=== PATIENT | female | born 1940 | race Caucasian/White ===

== ENCOUNTER 2019-05-29 10:10 | Inpatient (IN) | payer MEDICARE ==
[~2019-05-29] VITALS: Ht 165.1 cm; Wt 111.8 kg
[~2019-05-29 10:10] MED LIST: ASPI-496 PO; CHOL2000 PO; GLIP5TAB10 PO; INSU100I13 SC; LISI-167 PO; METF10002 PO; MULT-717 PO; PRAV80TA2 PO
[2019-05-29] MEDS ORDERED: SODIUM CHLORIDE FLUSH 10ML SYR IVF ONE (10:30)
[2019-05-29] MEDS ORDERED: PROMETHAZINE 25 MG/ML, 1ML ONE (10:37)
[2019-05-29] MEDS ORDERED: PLEASE ENTER HEIGHT AND WEIGHT MC SCH (11:00)
--- NOTE | 2019-05-29 11:08 | NUR ---
pt had one more episode of nausea and vomiting with diarrhea. pt cleaned at this time, sheets changed.
[2019-05-29 11:10] LABS: BASOPHILS # (AUTO) 0.01 x10^3/uL (0-0.1); BASOPHILS % (AUTO) 0 % (0-1); EOSINOPHILS # (AUTO) 0.15 x10^3/uL (0-0.4); EOSINOPHILS % (AUTO) 1 % (1-7); LYMPHOCYTES # (AUTO) 1.59 x10^3/uL (1-3.4); LYMPHOCYTES % (AUTO) 15 % (22-44); MD NO; MEAN CORPUSCULAR HEMOGLOBIN 30.9 pg (27.0-34.8); MEAN CORPUSCULAR HGB CONC 32.5 g/dL (32.4-35.8); MEAN CORPUSCULAR VOLUME 95.3 fL (80-100); MEAN PLATELET VOLUME 9.5 fL (7.4-10.4); MONOCYTES # (AUTO) 0.15 x10^3/uL (0.2-0.8); MONOCYTES % (AUTO) 1 % (2-9); NEUTROPHILS # (AUTO) 8.76 x10^3/uL (1.8-6.8); NEUTROPHILS % (AUTO) 82 % (42-75); PLATELET COUNT 235 x10^3/uL (130-400); RED BLOOD COUNT 5.34 x10^6/uL (3.82-5.3); RED CELL DISTRIBUTION WIDTH 14.1 % (9.6-15.2)
[2019-05-29 11:28] LABS: ANION GAP 12 mmol/L (5-15); CALCIUM 8.3 mg/dL (8.5-10.1); CHLORIDE 111 mmol/L (98-107); CREATININE 0.96 mg/dL (0.55-1.02)
[2019-05-29] MEDS ORDERED: PROMETHAZINE 25 MG/ML, 1ML IM ONE (11:30)
[2019-05-29 11:36] LABS: ALANINE AMINOTRANSFERASE 15 U/L (12-78); ALKALINE PHOSPHATASE 60 U/L (45-117); BILIRUBIN,TOTAL 0.4 mg/dL (0.2-1.0); FREE T4 (FREE THYROXINE) 0.89 ng/dL (0.76-1.46); TOTAL PROTEIN 6.1 g/dL (6.4-8.2)
[2019-05-29] MEDS ORDERED: SODIUM CHLORIDE 0.9% 1,000ML IVBOLUS ONE (13:00)
[2019-05-29 13:24] LABS: TROPONIN I < 0.015 ng/mL (0.000-0.045)
[2019-05-29 14:00] VITALS: BP 114/68
[2019-05-29] MEDS ORDERED: ACETAMINOPHEN 325 MG TABLET PO PRN (14:00)
[2019-05-29] MEDS ORDERED: ENOXAPARIN 40 MG/0.4 ML SQ SCH (14:00)
[2019-05-29] MEDS ORDERED: ONDANSETRON 2MG/ML, 2ML IVPush PRN (14:00)
[2019-05-29] MEDS ORDERED: hydrALAzine 20 MG/ML, 1ML IVPush PRN (14:00)
[2019-05-29] MEDS ORDERED: PROMETHAZINE 25 MG/ML, 1ML IM PRN (14:00)
[2019-05-29] MEDS ORDERED: LABETALOL 5MG/ML, 20ML IVPush PRN (14:00)
[2019-05-29 14:53] LABS: MICROSCOPIC INDICATED
[2019-05-29 14:56] LABS: CULTURE INDICATED? YES
[2019-05-29 15:11] LABS: TROPONIN I < 0.015 ng/mL (0.000-0.045)
[2019-05-29] MEDS: SODIUM CHLORIDE 0.9% 1,000 ML IV SCH ×3 (16:03→21:50)
[2019-05-29] MEDS: INSULIN LISPRO 100 UNITS/ML, PEN SQ-INSULIN SCH ×2 (16:49→21:48)
[2019-05-29 19:19] VITALS: BP 94/59
[2019-05-29 20:02] LABS: TROPONIN I < 0.015 ng/mL (0.000-0.045)
[2019-05-29] MEDS ORDERED: INSULIN GLARGINE 100 UNITS/ML, PEN SQ-INSULIN SCH ×2 (21:00)
[2019-05-29] MEDS ORDERED: PRAVASTATIN 40 MG TABLET PO SCH (21:00)
[2019-05-29] MEDS ORDERED: PRAVASTATIN 20 MG TABLET ONE (21:41)
[2019-05-30 01:19] VITALS: BP 102/65
[2019-05-30] MEDS: SODIUM CHLORIDE 0.9% 1,000 ML IV SCH (05:09)
[2019-05-30 06:34] LABS: ALBUMIN 2.8 g/dL (3.4-5.0); ANION GAP 4 mmol/L (5-15); CALCIUM 7.7 mg/dL (8.5-10.1); CHLORIDE 110 mmol/L (98-107)
[2019-05-30 06:37] LABS: BASOPHILS # (AUTO) 0.03 x10^3/uL (0-0.1); BASOPHILS % (AUTO) 0 % (0-1); EOSINOPHILS # (AUTO) 0.47 x10^3/uL (0-0.4); EOSINOPHILS % (AUTO) 4 % (1-7); LYMPHOCYTES # (AUTO) 2.12 x10^3/uL (1-3.4); LYMPHOCYTES % (AUTO) 20 % (22-44); MD NO; MEAN CORPUSCULAR HEMOGLOBIN 31.5 pg (27.0-34.8); MEAN CORPUSCULAR HGB CONC 32.5 g/dL (32.4-35.8); MEAN CORPUSCULAR VOLUME 96.9 fL (80-100); MEAN PLATELET VOLUME 9.3 fL (7.4-10.4); MONOCYTES # (AUTO) 0.38 x10^3/uL (0.2-0.8); MONOCYTES % (AUTO) 4 % (2-9); NEUTROPHILS # (AUTO) 7.72 x10^3/uL (1.8-6.8); NEUTROPHILS % (AUTO) 72 % (42-75); PLATELET COUNT 222 x10^3/uL (130-400); RED BLOOD COUNT 3.95 x10^6/uL (3.82-5.3); RED CELL DISTRIBUTION WIDTH 14.4 % (9.6-15.2)
[2019-05-30 06:38] LABS: ALANINE AMINOTRANSFERASE 15 U/L (12-78); ALKALINE PHOSPHATASE 45 U/L (45-117); BILIRUBIN,TOTAL 0.5 mg/dL (0.2-1.0); CREATININE 0.78 mg/dL (0.55-1.02); TOTAL PROTEIN 5.5 g/dL (6.4-8.2)
[2019-05-30] MEDS: INSULIN LISPRO 100 UNITS/ML, PEN SQ-INSULIN SCH ×2 (07:00→12:28)
[2019-05-30] MEDS ORDERED: LACTATED RINGERS 1,000 ML IV SCH (07:30)
[2019-05-30] MEDS ORDERED: CHOLECALCIFEROL 1,000 UNIT TABLET PO SCH (09:00)
[2019-05-30] MEDS ORDERED: MULTIVITAMINS/MINERALS TABLET PO SCH (09:00)
[2019-05-30] MEDS ORDERED: ASPIRIN 81 MG TABLET EC PO SCH (09:00)
[2019-05-30 09:26] VITALS: BP 128/77
[2019-05-30] MEDS ORDERED: LISI5TAB7 PO (11:55)
[2019-05-30] MEDS ORDERED: INSULIN GLARGINE 100 UNITS/ML, PEN SQ-INSULIN SCH (21:00)
== END 2019-05-30 13:50 | disposition home or self-care (01) | DRG 315 ==
LOC: ED 12:57 → EDIP 13:18 → 4WST 13:45 → DCLOUNGE 05-30 13:38
PROVIDERS: ADMIT Hospitalist; ATTEND Hospitalist
PROC: 0T9B70Z Drainage of Bladder with Drainage Device, Via Natural or Artificial Opening (ICD-10-PCS; principal; 2019-05-29)
DX: I95.9 Hypotension, unspecified (principal); Z68.41 Body mass index [BMI] 40.0-44.9, adult; E87.2 Acidosis; E86.0 Dehydration; K52.9 Noninfective gastroenteritis and colitis, unspecified; D75.1 Secondary polycythemia; D72.829 Elevated white blood cell count, unspecified; E11.9 Type 2 diabetes mellitus without complications; I10 Essential (primary) hypertension; E66.9 Obesity, unspecified; R55 Syncope and collapse; Z79.4 Long term (current) use of insulin; Z83.3 Family history of diabetes mellitus; Z90.710 Acquired absence of both cervix and uterus; Z90.49 Acquired absence of other specified parts of digestive tract
CPT/HCPCS: 36415; 71045; 80053; 81001; 82150; 82962; 83605; 83690; 84145; 84439; 84443; 84484; 85025; 87040; 87086; 93005; 96372; G0378; J1650; J2550; J1815; J7030; J7120

== ENCOUNTER 2021-05-28 09:57 | Emergency (ER) | payer MEDICARE ==
[~2021-05-28] VITALS: Ht 165.1 cm; Wt 113.0 kg
[~2021-05-28 09:57] MED LIST changes: +LISI5TAB7 PO
--- NOTE | 2021-05-28 10:49 | NUR ---
PT CAME IN [place] RLQ ABD PAIN THAT RADIATES TO RIGHT FLANK WITH INCREASED URINARY FREQUENCY. PT REPORTS SHE STILL HAS HER APPENDIX BUT HAS HAD HER GALLBLADDER REMOVED. PT RESTING IN [facility]. MD IS BEDSIDE FOR ASSESSMENT
[2021-05-28] MEDS ORDERED: METHOCARBAMOL 750 MG TABLET ONE (10:59)
[2021-05-28] MEDS ORDERED: HYDROcodone/APAP 5/325 TABLET ONE (11:00)
[2021-05-28] MEDS ORDERED: METHOCARBAMOL 750 MG TABLET PO ONE (11:00)
[2021-05-28] MEDS ORDERED: HYDROcodone/APAP 5/325 TABLET PO ONE (11:00)
--- NOTE | 2021-05-28 11:08 | NUR ---
PT MEDICATED PER JAN. PT EDUCATED ON PLAN OF CARE
[2021-05-28 11:20] LABS: BASOPHILS % (AUTO) 1 % (0-1); EOSINOPHILS % (AUTO) 6 % (1-7); LYMPHOCYTES % (AUTO) 20 % (22-44); MEAN CORPUSCULAR HEMOGLOBIN 30.1 pg (27.0-34.8); MEAN CORPUSCULAR HGB CONC 32.7 g/dL (32.4-35.8); MEAN PLATELET VOLUME 9.3 fL (7.4-10.4); MONOCYTES % (AUTO) 6 % (2-9); NEUTROPHILS % (AUTO) 67 % (42-75); PLATELET COUNT 258 x10^3/uL (130-400); RED BLOOD COUNT 4.61 x10^6/uL (3.82-5.3); RED CELL DISTRIBUTION WIDTH 15.4 % (9.6-15.2)
[2021-05-28 11:29] LABS: ALANINE AMINOTRANSFERASE 18 U/L (12-78); ALBUMIN 3.3 g/dL (3.4-5.0); ANION GAP 6 mmol/L (5-15); CALCIUM 9.5 mg/dL (8.5-10.1); CHLORIDE 107 mmol/L (98-107); CREATININE 0.82 mg/dL (0.55-1.02)
[2021-05-28 11:32] LABS: ALKALINE PHOSPHATASE 68 U/L (45-117); BILIRUBIN,TOTAL 0.4 mg/dL (0.2-1.0); TOTAL PROTEIN 7.2 g/dL (6.4-8.2)
[2021-05-28 11:38] LABS: MICROSCOPIC NOT IND
[2021-05-28] MEDS ORDERED: OMNIPAQUE 350 MG/ML, 150 ML BOTTLE ONE (12:24)
[2021-05-28 12:36] VITALS: BP 127/77
--- NOTE | 2021-05-28 12:36 | NUR ---
BEDSIDE FOR RECHECK.
== END 2021-05-28 14:38 | disposition home or self-care (01) ==
LOC: ED 14:14
DX: M79.18 Myalgia, other site (principal); R10.9 Unspecified abdominal pain; R35.0 Frequency of micturition; R94.31 Abnormal electrocardiogram [ECG] [EKG]; R93.5 Abnormal findings on diagnostic imaging of other abdominal regions, including retroperitoneum; I10 Essential (primary) hypertension; E11.9 Type 2 diabetes mellitus without complications; E78.00 Pure hypercholesterolemia, unspecified; E78.5 Hyperlipidemia, unspecified; Z90.49 Acquired absence of other specified parts of digestive tract; Z90.710 Acquired absence of both cervix and uterus
CPT/HCPCS: 36415; 74170; 74176; 80053; 81003; 83690; 85025; 99285; Q9967